=== PATIENT | female | born 1945 | race Caucasian/White ===

== ENCOUNTER 2018-12-05 17:08 | Observation (INO) | payer OTHER ==
[2018-12-05 20:08] LABS: ADD MAN DIFF? NO
[2018-12-05 20:15] LABS: BASOPHILS % 0.4 % (0.0-2.0); EOSINOPHILS % 0.4 % (0.0-7.0); HEMATOCRIT 41.1 % (37.0-47.0); HEMOGLOBIN 13.5 g/dl (12.0-16.0); LYMPHOCYTES # 2.7 10^3/ul (0.8-2.9); LYMPHOCYTES % 34.7 % (15.0-51.0); MEAN CORPUSCULAR HEMOGLOBIN 31.2 pg (29.0-33.0); MEAN CORPUSCULAR HGB CONC 32.8 g/dl (32.0-37.0); MEAN CORPUSCULAR VOLUME 94.9 fl (82.0-101.0); MEAN PLATELET VOLUME 11.6 fl (7.4-10.4); MONOCYTE # 0.6 10^3/ul (0.3-0.9); MONOCYTES % 8.2 % (0.0-11.0); NEUTROPHIL # 4.4 10^3/ul (1.6-7.5); PLATELET COUNT 204 10^3/UL (140-415); RED BLOOD COUNT 4.33 10^6/ul (4.20-5.40); RED CELL DISTRIBUTION WIDTH 12.9 % (11.5-14.5)
[2018-12-05 20:15] LABS: WHITE BLOOD COUNT 7.8 10^3/ul (4.8-10.8)
[2018-12-05 21:20] LABS: ANION GAP 13 (5-13); BLOOD UREA NITROGEN 11 mg/dl (7-20); CALCIUM 10.3 mg/dl (8.4-10.2); CARBON DIOXIDE 26 mmol/L (21-31); CHLORIDE 105 mmol/L (97-110); CREATININE 0.58 mg/dl (0.44-1.00); GLUCOSE 85 mg/dl (70-220); POTASSIUM 3.6 mmol/L (3.5-5.1); SODIUM 144 mmol/L (135-144)
[2018-12-05 21:32] LABS: TROPONIN-I < 0.012 ng/ml (0.000-0.120)
[2018-12-05] MEDS ORDERED: ACETAMINOPHEN 325 MG TAB PO (22:30)
[2018-12-05] MEDS ORDERED: ONDANSETRON 4 MG INJ IV (22:30)
[2018-12-06] MEDS ORDERED: NACL 0.9% 3 ML SYG IV
[2018-12-06] MEDS ORDERED: ONDANSETRON 4 MG INJ IV
[2018-12-06] MEDS ORDERED: HYDROCODONE/APAP (5/325) TAB PO
[2018-12-06] MEDS ORDERED: ACETAMINOPHEN 325 MG TAB PO
[2018-12-06] MEDS ORDERED: NITROGLYCERIN (SL) 0.4 MG TAB SL
[2018-12-06] MEDS ORDERED: ZOLPIDEM 5 MG TAB PO
[2018-12-06] MEDS: FUROSEMIDE 40 MG INJ IV (00:11)
[2018-12-06 01:03] LABS: CREATINE KINASE 43 IU/L (23-200)
[2018-12-06 01:15] LABS: CK INDEX 1.1; CK-MB 0.49 ng/ml (0.0-2.4); TROPONIN-I < 0.012 ng/ml (0.000-0.120)
[2018-12-06 05:13] LABS: ADD MAN DIFF? NO
[2018-12-06 05:22] LABS: BASOPHILS % 0.3 % (0.0-2.0); EOSINOPHILS % 0.6 % (0.0-7.0); HEMATOCRIT 39.1 % (37.0-47.0); HEMOGLOBIN 13.4 g/dl (12.0-16.0); LYMPHOCYTES # 2.3 10^3/ul (0.8-2.9); LYMPHOCYTES % 33.1 % (15.0-51.0); MEAN CORPUSCULAR HEMOGLOBIN 31.4 pg (29.0-33.0); MEAN CORPUSCULAR HGB CONC 34.3 g/dl (32.0-37.0); MEAN CORPUSCULAR VOLUME 91.6 fl (82.0-101.0); MEAN PLATELET VOLUME 11.6 fl (7.4-10.4); MONOCYTE # 0.6 10^3/ul (0.3-0.9); MONOCYTES % 8.6 % (0.0-11.0); NEUTROPHILS % 57.1 % (39.0-77.0); PLATELET COUNT 200 10^3/UL (140-415); RED BLOOD COUNT 4.27 10^6/ul (4.20-5.40); RED CELL DISTRIBUTION WIDTH 12.8 % (11.5-14.5)
[2018-12-06 05:27] LABS: HEMOGLOBIN A1C 5.1 % (0-5.9)
[2018-12-06 05:29] LABS: CREATINE KINASE 32 IU/L (23-200)
[2018-12-06 05:33] LABS: ALANINE AMINOTRANSFERASE 23 IU/L (13-69); ALBUMIN 4.3 g/dl (3.3-4.9); ALKALINE PHOSPHATASE 64 IU/L (42-121); ANION GAP 11 (5-13); ASPARTATE AMINO TRANSFERASE 17 IU/L (15-46); BILIRUBIN,INDIRECT 1.4 mg/dl (0-1.1); BILIRUBIN,TOTAL 1.4 mg/dl (0.2-1.3); BLOOD UREA NITROGEN 11 mg/dl (7-20); CALCIUM 9.5 mg/dl (8.4-10.2); CARBON DIOXIDE 29 mmol/L (21-31); CHLORIDE 105 mmol/L (97-110); CHOL/HDL RATIO 3.4 RATIO; CHOLESTEROL 160 mg/dl (100-200); GLUCOSE 94 mg/dl (70-220); HDL CHOLESTEROL 47 mg/dl (33-92); LDL CHOLESTEROL,CALCULATED 97 mg/dl; MAGNESIUM 1.7 mg/dl (1.7-2.5); POTASSIUM 3.4 mmol/L (3.5-5.1); SODIUM 145 mmol/L (135-144); TOTAL PROTEIN 7.6 g/dl (6.1-8.1); TRIGLYCERIDES 82 mg/dl (0-149)
[2018-12-06 05:42] LABS: CK INDEX 1.2; CK-MB 0.38 ng/ml (0.0-2.4); TROPONIN-I < 0.012 ng/ml (0.000-0.120)
[2018-12-06] MEDS: LEVOTHYROXINE 75 MCG TAB PO (06:07)
[2018-12-06] MEDS: PANTOPRAZOLE (EC) 40 MG TAB PO (06:07)
[2018-12-06] MEDS: LOSARTAN 50 MG TAB PO (08:53)
[2018-12-06] MEDS: FUROSEMIDE 20 MG TAB PO (08:53)
[2018-12-06] MEDS ORDERED: BISOPROLOL 5 MG TAB PO (09:00)
[2018-12-06] MEDS ORDERED: NON-FORMULARY/PATIENT OWN MED (Esomeprazole Mag Trihydrate (Nexium) 20 MG) PO (09:00)
[2018-12-06] MEDS: POTASSIUM CHLORIDE (SR) 20 MEQ TAB PO (11:57)
[2018-12-06] MEDS ORDERED: RIVAROXABAN 20 MG TABLET PO (18:00)
== END 2018-12-06 12:48 | disposition home or self-care (01) ==
LOC: E/R 17:08 → 6WM 22:12
PROVIDERS: Internal Medicine
DX: R07.9 Chest pain, unspecified (principal); I10 Essential (primary) hypertension; I48.91 Unspecified atrial fibrillation; E03.9 Hypothyroidism, unspecified
CPT/HCPCS: 36415; 71045; 80048; 80053; 80061; 82550; 82553; 83036; 83735; 84443; 84484; 85025; 93005; 96374; 99285-25; G0378